=== PATIENT | female | born 1950 | race Caucasian/White ===

== ENCOUNTER 2016-07-10 16:34 | Emergency (ER) | payer OTHER ==
[~2016-07-10] VITALS: Ht 170.2 cm; Wt 88.8 kg
[2016-07-10 16:39] VITALS: BP 174/106; PULSE 70; RESP 16; TEMP 97.9; O2SAT 96
[2016-07-10] MEDS ORDERED: VIVE0.05 T-DERMAL (16:53)
[2016-07-10] MEDS ORDERED: MELO-1 PO (16:53)
--- NOTE | 2016-07-10 16:53 | PD ---
HPI Chief Complaint: Abnormal Results Time Seen by Provider: 16:44 Travel History International Travel<30 days: No Contact w/Intl Traveler<30days: No Traveled to known affect area: No History of Present Illness HPI 65-year-old female with history of melanoma to her scalp, sent in by her oncologist Dr. Haywood for evaluation of elevated blood pressure, blurred vision, headache, unsteady gait. Patient reports that her symptoms started about an hour ago. She is complaining of pain behind her right eye as well as blurred vision in her right eye. She also noted that when she was signing in that her handwriting seemed different. She denies paresthesias or focal motor deficit. No chest pain or dyspnea. No history of hypertension. 3 days ago the patient had her right hip injected for possible bursitis with a corticosteroid and was discharged home with meloxicam. [facility] Social History Alcohol Use: Yes (1 beer per week) Tobacco Use: No Allergies-Medications (Allergen,Severity, Reaction): Coded Allergies: Codeine (Verified Allergy, Unknown, URINARY RETENTION, 07/10/16) Uncoded Allergies: ENABLEX (Allergy, Severe, MUSCLE SPASM, 07/10/16) Reported Meds & Prescriptions Reported Meds & Active Scripts Active Reported Vivelle-Dot Patch 84 HR (Estradiol) 0.05 Mg/24 Hr Patch 1 Patch T-DERMAL 2XWEEK Remove old patch and discard when new patch being placed. Change same days each week. Meloxicam 15 Mg Tab 15 Mg PO DAILY Review of Systems Except as stated in HPI: all other systems reviewed are Neg Physical Exam Narrative GENERAL: Well-developed, well-nourished, awake, alert, no acute distress. SKIN: Warm and dry. No rash. Right hip without erythema or warmth. HEAD: Atraumatic. Normocephalic. EYES: Pupils equal, round, 3 mm, reactive to light. No scleral icterus. No injection or drainage. ENT: Mucous membranes pink and moist. NECK: Trachea midline. No JVD. CARDIOVASCULAR: Regular rate and rhythm. No murmur appreciated. RESPIRATORY: No accessory muscle use. Clear to auscultation. Breath sounds equal bilaterally. GASTROINTESTINAL: Abdomen soft, non-tender, nondistended. MUSCULOSKELETAL: No obvious deformities. No clubbing. No cyanosis. No edema. NEUROLOGICAL: Awake and alert. No obvious cranial nerve deficits. Motor grossly within normal limits. Normal speech. No focal deficit. No pronator drift. Over shoot's with lebmfn-krip-[id number] test bilaterally. PSYCHIATRIC: Appropriate mood and affect; insight and judgment normal. Data Data Last Documented VS Vital Signs Date Time Temp Pulse Resp B/P Pulse Ox O2 Delivery O2 Flow Rate FiO2 07/10/16 18:09 71 17 177/94 97 Room Air 07/10/16 16:39 97.9 Orders Electrocardiogram (07/10/16 16:50) Ckmb (Isoenzyme) Profile (07/10/16 16:50) Complete Blood Count With Diff (07/10/16 16:50) Comprehensive Metabolic Panel (07/10/16 16:50) Prothrombin Time / Inr (Pt) (07/10/16 16:50) Act Partial Throm Time (Ptt) (07/10/16 16:50) Troponin I (07/10/16 16:50) Chest, Single Ap (07/10/16 16:50) Ecg Monitoring (07/10/16 16:50) Bilateral Bp Monitoring (07/10/16 16:50) Iv Access Insert/Monitor (07/10/16 16:50) Oximetry (07/10/16 16:50) Oxygen Administration (07/10/16 16:50) Sodium Chloride 0.9% Flush (Ns Flush) (07/10/16 17:00) Hydralazine Inj (Apresoline Inj) (07/10/16 17:00) Westergren Sedimentation Rate (07/10/16 16:50) Ct Brain W/O Iv Contrast(Rout) (07/10/16 ) Urinalysis - C+S If Indicated (07/10/16 17:04) Acetaminophen (Tylenol) (07/10/16 17:15) Labs Laboratory Tests Test 07/10/16 07/10/16 17:10 17:40 White Blood Count 8.0 TH/MM3 Red Blood Count 4.67 MIL/MM3 Hemoglobin 13.8 GM/DL Hematocrit 40.8 % Mean Corpuscular Volume 87.3 FL Mean Corpuscular Hemoglobin 29.4 PG Mean Corpuscular Hemoglobin 33.7 % Concent Red Cell Distribution Width 13.4 % Platelet Count 223 TH/MM3 Mean Platelet Volume 8.7 FL Neutrophils (%) (Auto) 56.9 % Lymphocytes (%) (Auto) 27.9 % Monocytes (%) (Auto) 8.9 % Eosinophils (%) (Auto) 5.3 % Basophils (%) (Auto) 1.0 % Neutrophils # (Auto) 4.6 TH/MM3 Lymphocytes # (Auto) 2.2 TH/MM3 Monocytes # (Auto) 0.7 TH/MM3 Eosinophils # (Auto) 0.4 TH/MM3 Basophils # (Auto) 0.1 TH/MM3 CBC Comment DIFF FINAL Differential Comment Erythrocyte Sedimentation Rate 7 mm/hr Prothrombin Time 10.3 SEC Prothromb Time International 0.9 RATIO Ratio Activated Partial 25.7 SEC Thromboplast Time Sodium Level 139 MEQ/L Potassium Level 3.9 MEQ/L Chloride Level 100 MEQ/L Carbon Dioxide Level 30.6 MEQ/L Anion Gap 8 MEQ/L Blood Urea Nitrogen 16 MG/DL Creatinine 0.95 MG/DL Estimat Glomerular Filtration 59 ML/MIN Rate Random Glucose 99 MG/DL Calcium Level 8.7 MG/DL Total Bilirubin 0.3 MG/DL Aspartate Amino Transf 10 U/L (AST/SGOT) Alanine Aminotransferase 22 U/L (ALT/SGPT) Alkaline Phosphatase 60 U/L Total Creatine Kinase 51 U/L Troponin I LESS THAN 0.02 NG/ML Total Protein 7.0 GM/DL Albumin 3.7 GM/DL Urine Color STRAW Urine Turbidity CL Urine pH 6.0 Urine Specific [place] 1.005 Urine Protein NEG mg/dL Urine Glucose (UA) NEG mg/dL Urine Ketones NEG mg/dL Urine Occult Blood NEG Urine Nitrite NEG Urine Bilirubin NEG Urine Leukocyte Esterase NEG Urine RBC 0-3 /hpf Urine WBC 0-2 /hpf Urine Squamous Epithelial 6-8 /hpf Cells Urine Bacteria FEW /hpf Microscopic Urinalysis Comment CULT NOT INDICATED MDM Medical Decision Making Medical Screen Exam Complete: Yes Emergency Medical Condition: Yes Interpretation(s) Sinus, rate 63, normal axis, normal intervals, no acute ischemic abnormality. Differential Diagnosis Hypertensive crisis, intracranial abnormality, metabolic abnormality, temporal arteritis Narrative Course Vital signs reviewed. The patient does have some elevated blood pressure readings, however they are not as high as 220s over 110 which was seen in Dr Haywood's office. Heart rate is 70, pulse ox 98% on room air, oral temp of 97.9 F. CBC is unremarkable. CMP is unremarkable. Cardiac enzymes are negative. ESR is 7. UA is not suggestive of UTI. Chest x-ray: No acute disease. CT head: No acute disease. The patient was given Tylenol with improvement in headache and blurred vision. The patient is not displaying any signs or symptoms of hypertensive crisis. She is feeling much improved. The patient reports feeling flushed almost immediately after receiving corticosteroid injection for right greater trochanteric bursitis 3 days ago. She was also started on meloxicam. Both of these medications can cause elevated blood pressure. Patient feels well and would like to be discharged home. I believe she is stable for discharge home with outpatient follow-up with her primary care physician this week. She was informed on when to return to the emergency department. She verbalizes understanding and agreement with plan. Diagnosis Primary Impression: Elevated blood pressure reading Referrals: Primary Care Physician 3 days Additional Instructions: Follow-up with your primary care physician this week. Return to the emergency department for worsening symptoms or any other concerns. Disposition: 01 DISCHARGE HOME Condition: Stable Jesse Hartmann MD Jul 10, 2016 16:53
[2016-07-10] MEDS ORDERED: hydrALAZINE HCL 20 MG/ML VIAL IV PUSH ONE (17:00)
[2016-07-10] MEDS ORDERED: SODIUM CHLORIDE 0.9% FLUSH 5 ML FLUSH IVF PRN (17:00)
[2016-07-10] MEDS ORDERED: ACETAMINOPHEN 325 MG TAB PO ONE (17:15)
[2016-07-10 17:17] VITALS: BP_SYST 169; BP_SYST 176; BP_DIAS 76; BP_DIAS 95; PULSE 66; RESP 18; O2SAT 98
--- NOTE | 2016-07-10 17:18 | RADHPO ---
EXAM DATE/TIME: 07/10/2016 17:07 [facility] COMPARISON: No previous studies available for comparison. INDICATIONS : High blood pressure. MEDICAL HISTORY : None. SURGICAL HISTORY : None. ENCOUNTER: Initial ACUITY: 1 day PAIN SCORE: 0/10 LOCATION: Bilateral chest FINDINGS: A single view of the chest demonstrates the lungs to be symmetrically aerated without evidence of mas s, infiltrate or effusion. The cardiomediastinal contours are unremarkable. Osseous structures are intact. CONCLUSION: No acute disease. Jet Amato MD FACR on July 10, 2016 at 17:16 Board Certified Radiologist. This report was verified electronically.
[2016-07-10 17:19] LABS: AUTOMATED NEUTROPHIL # 4.6 TH/MM3 (1.8-7.7); BASOPHIL # 0.1 TH/MM3 (0-0.2); EOSINOPHIL # 0.4 TH/MM3 (0-0.4); EOSINOPHIL % 5.3 % (0.0-4.0); HEMATOCRIT 40.8 % (35.0-46.0); HEMO FLAGS DIFF FINAL; LYMPH % 27.9 % (9.0-44.0); LYMPHOCYTE # 2.2 TH/MM3 (1.0-4.8); MEAN CELL VOLUME 87.3 FL (80.0-100.0); MEAN CORPUSCULAR HEMOGLOBIN 29.4 PG (27.0-34.0); MEAN CORPUSCULAR HGB CONC 33.7 % (32.0-36.0); MONO % 8.9 % (0.0-8.0); NEUT % 56.9 % (16.0-70.0); PLATELET COUNT 223 TH/MM3 (150-450); RED BLOOD COUNT 4.67 MIL/MM3 (4.00-5.30); RED CELL DISTRIBUTION WIDTH 13.4 % (11.6-17.2)
[2016-07-10 17:28] LABS: CHLORIDE 100 MEQ/L (98-107); POTASSIUM 3.9 MEQ/L (3.5-5.1); SODIUM (NA) 139 MEQ/L (136-145)
[2016-07-10 17:32] LABS: ANION GAP 8 MEQ/L (5-15); BICARBONATE 30.6 MEQ/L (21.0-32.0); BLOOD UREA NITROGEN 16 MG/DL (7-18)
[2016-07-10 17:33] VITALS: BP 185/94
[2016-07-10 17:33] LABS: APTT (PATIENT) 25.7 SEC (24.3-30.1); INTERNATIONAL NORMALIZED RATIO 0.9 RATIO; PROTHROMBIN TIME - PATIENT 10.3 SEC (9.8-11.6)
[2016-07-10 17:35] LABS: ALT (GPT) 22 U/L (10-53); AST (GOT) 10 U/L (15-37); GLOMERULAR FILTRATION RATE 59 ML/MIN (>89)
[2016-07-10 17:37] LABS: TOTAL BILIRUBIN ADULT 0.3 MG/DL (0.2-1.0)
[2016-07-10 17:38] LABS: ALKALINE PHOSPHATASE 60 U/L (45-117)
[2016-07-10 17:45] LABS: CREATINE KINASE 51 U/L (26-192)
[2016-07-10 17:45] LABS: BLOOD, URINE NEG (NEG); GLUCOSE,URINE NEG (NEG); KETONE, URINE NEG (NEG); NITRITE,URINE NEG (NEG)
--- NOTE | 2016-07-10 17:46 | RADHPO ---
EXAM DATE/TIME: 07/10/2016 17:19 [facility] COMPARISON: No previous studies available for comparison. INDICATIONS : Headache and dizziness. RADIATION DOSE: 57.94 CTDIvol (mGy) MEDICAL HISTORY : Hypertension. SURGICAL HISTORY : Tonsillectomy. ENCOUNTER: Initial ACUITY: 1 day PAIN SCALE: 6/10 LOCATION: cranial TECHNIQUE: Multiple contiguous axial images were obtained of the head. Using automated exposure control and adj ustment of the mA and/or kV according to patient size, radiation dose was kept as low as reasonably a chievable to obtain optimal diagnostic quality images. FINDINGS: CEREBRUM: The ventricles are normal for age. No evidence of midline shift, mass lesion, hemorrhage or acute in farction. No extra-axial fluid collections are seen. POSTERIOR FOSSA: The cerebellum and brainstem are intact. The 4th ventricle is midline. The cerebellopontine angle i s unremarkable. EXTRACRANIAL: The visualized portion of the orbits is intact. SKULL: The calvaria is intact. No evidence of skull fracture. CONCLUSION: No acute disease. Jet Amato MD FACR on July 10, 2016 at 17:45 Board Certified Radiologist. This report was verified electronically.
[2016-07-10 17:52] LABS: BACTERIA, URINE FEW /hpf; COMMENT (UR) CULT NOT INDICATED; CULTURE IF INDICATED CULT NOT INDICATED; RBC, URINE 0-3 /hpf (0-3); URINE COLOR STRAW (YELLW/STRAW); WBC, URINE 0-2 /hpf (0-5)
[2016-07-10 18:09] VITALS: BP 177/94; PULSE 71; RESP 17; O2SAT 97
--- NOTE | 2016-07-11 19:11 | EKG ---
Date Performed: 07/10/2016 Time Performed: 16:54:32 PTAGE: 65 years EKG: Sinus rhythm Inferior infarct - age undetermined Low QRS voltages in precordial leads Since previous tracing, no significant change noted Abnormal ECG PREVIOUS TRACING : 01/23/2011 11.16 DOCTOR: Perry Glass Interpretating Date/Time 07/11/2016 19:10:02
== END 2016-07-10 18:28 | disposition home or self-care (01) ==
LOC: PHED 16:34
DX: R03.0 Elevated blood-pressure reading, without diagnosis of hypertension (principal); R51 Headache; H53.8 Other visual disturbances; R94.31 Abnormal electrocardiogram [ECG] [EKG]; Z98.890 Other specified postprocedural states
CPT/HCPCS: 70450; 71010; 80053; 81001; 82550; 84484; 85025; 85610; 85652; 85730; 93005